=== PATIENT | male | born 2005 | race Caucasian/White ===

== ENCOUNTER → 2025-09-04 | Outpatient (CLI) | payer OTHER, MEDICAID, SELFPAY ==
--- NOTE | 2025-09-04 14:13 | XR_ITS ---
Examination: Breast ultrasound, unilateral, right Date and time of exam: 0 ridding on 2024, 1421 hours INDICATION: Palpable lump in the retroareolar region right breast noticed beginning 3 weeks ago Technique: Real-time oh scale ultrasonographic imaging performed right breast including all 4 quadrants as well as nipple retroareolar and axillary region. Findings: No cystic or solid mass IMPRESSION: BI-RADS Category 1: Negative study
== END | disposition home or self-care (01) ==
PROVIDERS: PCP Nurse Practitioner Family; Referring Provider Nurse Practitioner Family; Visit Provider Nurse Practitioner Family
DX: N64.4 Mastodynia (principal); Z78.9 Other specified health status; Z80.3 Family history of malignant neoplasm of breast
CPT/HCPCS: 76641